=== PATIENT | male | born 1955 | race Caucasian/White ===

== ENCOUNTER → 2025-01-16 | Outpatient (CLI) | payer MEDICARE ==
[~2025-01-16] MED LIST: ASPI-556 PO; ENAL-89 PO; FENO90CA PO; ROSU10TA22 PO
--- NOTE | 2025-01-16 12:09 | HMCIMG ---
US SOFT TISSUE GROIN REASON: LT GROIN HERNIA. COMPARISON: None TECHNIQUE: Left groin ultrasound study was performed. FINDINGS: Multiple left inguinal lymph nodes are seen with the largest measuring 4 x 4 by 9 mm. There is possible left inguinal hernia measuring 2.7 x 3.5 x 0.8 cm with minimal bowel loops. IMPRESSION: Multiple foreign sized left inguinal lymph nodes. There is left inguinal hernia with minimal bowel content.
== END | disposition home or self-care (01) ==
LOC: RAH 11:10
PROVIDERS: ATTEND Internal Medicine
DX: K40.90 Unilateral inguinal hernia, without obstruction or gangrene, not specified as recurrent (principal)
CPT/HCPCS: 76882